=== PATIENT | male | born 1960 | race Caucasian/White ===

== ENCOUNTER 2021-08-02 18:48 | Emergency (ER) | payer SELFPAY ==
[2021-08-02] MEDS ORDERED: KETOROLAC 30 MG/1 ML INJ IV ONE (20:16)
[2021-08-02] MEDS ORDERED: diazePAM 10 MG/2 ML SYRINGE IV ONE (20:16)
[2021-08-02] MEDS ORDERED: ASPIRIN 81 MG TAB CHEW PO ONE ×2 (20:19→20:31)
--- NOTE | 2021-08-02 20:24 | Emergency Department Report ---
ED General Adult HPI - General Chief complaint: Chest Pain Stated complaint: PAIN/NECK/SHOULDER/ARM/CHEST Time Seen by Provider: 08/02/21 19:29 Source: patient Mode of arrival: Ambulatory Limitations: No Limitations - History of Present Illness Initial comments: 60-year-old male with a history of CAD s/p 7 stents who presents with left shoulder pain that started about 3 days ago radiating to his neck progressively getting worse. Patient denies any jarad chest pain. Patient reports injury to his C4 and [address] Patient reported he used to get steroid, pain medication, and gabapentin to relieve his neck radiating pain. Patient believes that this is likely an episode of this neck to shoulder discomfort as he used to have. Patient also reports some tingling and numbness in his left finger as a result of the injury to his neck in the past. Patient denies any shortness of breath or palpitation. Patient denies any fall or trauma. No fever or chills reported. No other modifying or associated factors reported. Severity scale (0 -10): 7 - Related Data Previous Rx's Medication Instructions Recorded Last Taken Type Cyclobenzaprine [Flexeril] 10 mg PO TID PRN 5 Days #30 tab 08/02/21 Unknown Rx Duloxetine HCl [Cymbalta] 60 mg PO DAILY 30 Days #30 tab 08/02/21 Unknown Rx Ketorolac [Toradol] 10 mg PO Q6H PRN 5 Days #20 tab 08/02/21 Unknown Rx Allergies Allergy/AdvReac Type Severity Reaction Status Date / Time No Known Allergies Allergy Unverified 08/02/21 18:54 ED Review of Systems ROS: Stated complaint: PAIN/NECK/SHOULDER/ARM/CHEST Other details as noted in HPI Comment: All other systems reviewed and negative Respiratory: denies: shortness of breath, SOB with exertion Cardiovascular: denies: chest pain, palpitations, dyspnea on exertion Musculoskeletal: arthralgia, myalgia ED Past Medical Hx - Past Medical History Previous Medical History?: Yes Hx Hypertension: Yes Hx Heart Attack/AMI: Yes Hx Arthritis: Yes Additional medical history: Tripple bypass, aneurysm. 7 stents. pinched nerve - Surgical History Past Surgical History?: Yes Hx Open Heart Surgery: Yes (Tripple bypass) Hx Cholecystectomy: Yes Additional Surgical History: rectal sx - Medications Home Medications: Home Medications Medication Instructions Recorded Confirmed Last Taken Type Cyclobenzaprine [Flexeril] 10 mg PO TID PRN 5 Days #30 tab 08/02/21 Unknown Rx Duloxetine HCl [Cymbalta] 60 mg PO DAILY 30 Days #30 tab 08/02/21 Unknown Rx Ketorolac [Toradol] 10 mg PO Q6H PRN 5 Days #20 tab 08/02/21 Unknown Rx ED Physical Exam - General Limitations: No Limitations General appearance: alert, in no apparent distress - Head Head exam: Present: normal inspection - Eye Eye exam: Present: normal appearance Pupils: Present: normal accommodation - ENT ENT exam: Present: normal exam, normal orophraynx, mucous membranes moist - Neck Neck exam: Present: normal inspection, tenderness (Posterior neck tenderness to palpation with reduced flexion due to previous injury) - Respiratory Respiratory exam: Present: normal lung sounds bilaterally. Absent: respiratory distress, chest wall tenderness - Cardiovascular Cardiovascular Exam: Present: regular rate, normal rhythm, normal heart sounds - GI/Abdominal GI/Abdominal exam: Present: soft, normal bowel sounds. Absent: distended, tenderness, guarding - Extremities Exam Extremities exam: Present: normal inspection, full ROM, normal capillary refill. Absent: tenderness - Expanded Upper Extremity Exam Left Shoulder Exam: Present: normal inspection, tenderness Upper Arm exam: Present: normal inspection. Absent: tenderness Elbow exam: Present: normal inspection, full ROM. Absent: tenderness Forearm Wrist exam: Present: normal inspection, full ROM. Absent: tenderness Hand Wrist exam: Present: normal inspection, full ROM. Absent: tenderness - Back Exam Back exam: Present: normal inspection - Neurological Exam Neurological exam: Present: alert, oriented X3 - Psychiatric Psychiatric exam: Present: normal affect, normal mood - Skin Skin exam: Present: warm, normal color. Absent: intact ED Course Vital Signs 08/02/21 08/02/21 08/02/21 18:57 19:20 19:32 Temperature 97.7 F Pulse Rate 95 H 84 90 Respiratory 18 15 19 Rate Blood Pressure 125/84 143/94 Blood Pressure 143/94 [Right] O2 Sat by Pulse 97 98 98 Oximetry 08/02/21 08/02/21 08/02/21 19:46 20:00 20:18 Temperature Pulse Rate 83 78 82 Respiratory 13 17 14 Rate Blood Pressure 143/94 153/89 Blood Pressure [Right] O2 Sat by Pulse 97 96 96 Oximetry 08/02/21 08/02/21 08/02/21 20:30 20:46 21:00 Temperature Pulse Rate 81 76 Respiratory 21 21 Rate Blood Pressure 121/69 Blood Pressure [Right] O2 Sat by Pulse 96 97 98 Oximetry - Reevaluation(s) Reevaluation #1: 08/02/21 20:25 here with left shoulder and neck pain and noted with posterior neck tenderness to palpation with reduced flexion due to previous injury-however considering this patient cardiac history will rule out cardiac with EKG and troponin then treat his radiating cervical radiculopathy with toradol + valium + aspirin and other routine labs-- 08/02/21 20:27 Reevaluation #2: 08/02/21 22:21 Noted with unremarkable work-up including initial EKG and troponin which supported felt that this is likely not cardiac--chest x-ray with no acute finding, left shoulder x-ray showed some arthritis without any soft tissue swelling--we will discharge this patient home on pain medication and muscle r elaxant including neuroleptic pain medication with close follow-up with his primary doctor. ED Medical Decision Making - Lab Data Result diagrams: 08/02/21 20:45 08/02/21 20:45 - EKG Data -: EKG Interpreted by Me EKG shows normal: sinus rhythm Rate: normal - EKG Data When compared to previous EKG there are: previous EKG unavailable Interpretation: no acute changes, normal EKG 08/02/21 20:30 Normal EKG - Differential Diagnosis PR, Arthritis, shoulder pain, Critical care attestation.: If time is entered above; I have spent that time in minutes in the direct care of this critically ill patient, excluding procedure time. ED Disposition Clinical Impression: Arthritis of left shoulder region, Cervical radiculopathy at C5 Chest pain Qualifiers: Chest pain type: unspecified Qualified Code(s): R07.9 - Chest pain, unspecified Disposition: 01 HOME / SELF CARE / HOMELESS Is pt being admited?: No Does the pt Need Aspirin: Yes Condition: Stable Instructions: Cervical Radiculopathy, Radicular Pain, Neuropathic Pain, Arthritis, Nonspecific Chest Pain, Adult, Nonspecific Chest Pain, Adult, [id number] Additional Instructions: Take your pain medication as prescribed to help your symptoms It is very important that you call and follow-up with your primary doctor in the next 3 to 5 days for progress It is okay to apply topical analgesic like BenGay or to apply heat to your shoulder joint and posterior neck for 15-20 minutes for the next 3 days Please do not hesitate to call or return to emergency room if your symptoms worsen Prescriptions: Duloxetine HCl [Cymbalta] 60 mg PO DAILY 30 Days #30 tab Cyclobenzaprine [Flexeril] 10 mg PO TID PRN 5 Days #30 tab PRN Reason: Muscle Spasm Ketorolac [Toradol] 10 mg PO Q6H PRN 5 Days #20 tab PRN Reason: Pain
[2021-08-02] MEDS ORDERED: DULoxetine 30 MG CAP PO ONE (20:32)
[2021-08-02 20:58] LABS: Basophils # (Auto) 0.1 K/mm3 (0.0-0.1); Basophils % (Auto) 1.4 % (0.0-1.8); Eosinophils # (Auto) 0.2 K/mm3 (0.0-0.4); Eosinophils % (Auto) 2.3 % (0.0-4.3); Hematocrit 44.6 % (35.5-45.6); Hemoglobin 14.6 gm/dl (11.8-15.2); Lymphocytes # (Auto) 2.7 K/mm3 (1.2-5.4); Lymphocytes % (Auto) 30.4 % (13.4-35.0); Mean Corpuscular HGB Conc 33 % (32-34); Mean Corpuscular Volume 89 fl (84-94); Monocytes # (Auto) 0.5 K/mm3 (0.0-0.8); Monocytes % (Auto) 5.9 % (0.0-7.3); Platelet Count 150 K/mm3 (140-440); Red Blood Count 5.02 M/mm3 (3.65-5.03); Red Cell Distribution Width 14.5 % (13.2-15.2)
--- NOTE | 2021-08-02 21:01 | XRay Report ---
XR shoulder 2+V LT INDICATION / CLINICAL INFORMATION: left shoulder pain COMPARISON: None available. FINDINGS: No acute fracture or malalignment. 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 No focal sof t tissue abnormality. IMPRESSION: 1. No acute osseous findings in the left shoulder. Signer Name: Rafa Vargas MD Signed: 08/02/2021 8:57 PM Workstation Name: [id number]
--- NOTE | 2021-08-02 21:08 | XRay Report ---
XR chest 1V ap INDICATION / CLINICAL INFORMATION: left shoulder pain radiating to neck. COMPARISON: None available. FINDINGS: SUPPORT DEVICES: None. HEART /PULMONARY VASCULATURE: Sternotomy changes. Heart size is normal. No significant pulmonary vasc ulature congestion. LUNGS / PLEURA: No significant pulmonary or pleural abnormality. No pneumothorax. IMPRESSION: 1. No acute findings. Signer Name: Rafa Vargas MD Signed: 08/02/2021 9:04 PM Workstation Name: [id number]
[2021-08-02 21:09] LABS: INR 0.87 (0.87-1.13)
[2021-08-02 21:10] LABS: Partial Thromboplastin Time 27.5 Sec. (24.2-36.6)
[2021-08-02 21:18] LABS: Alanine Aminotransferase 25 units/L (7-56); Albumin 3.7 g/dL (3.9-5); BUN/Creatinine Ratio 19; Blood Urea Nitrogen 17 mg/dL (9-20); Calcium 8.5 mg/dL (8.4-10.2); Hemolysis Index 7
[2021-08-02 22:49] LABS: Bilirubin,Urine NEG (Negative); Blood,Urine MOD (Negative); Color,Urine Yellow (Yellow); Mucus,Urine 1+ /HPF; Urobilinogen,Urine < 2.0 mg/dL (<2.0)
[2021-08-02 22:58] VITALS: BP 153/73
--- NOTE | 2021-08-06 19:40 | Electrocardiograph Report ---
[facility] Test Date: 2021-08-02 Test Time: 19:08:07 Pat Name: NIKOLE GARDNER Department: Room: Gender: M [employer]: JUD : 1960 Requested By: SUSHANT SKINNER Order Number: [id number] Reading MD: Jerod Christy Measurements Intervals [place] Rate: 82 P: 57 CA: 130 QRS: 18 QRSD: 98 T: 62 QT: 354 QTc: 415 Interpretive Statements Sinus rhythm No previous ECG available for comparison Electronically Signed On 08-06-2021 19:40:06 EDT by Jerod Christy
== END 2021-08-02 22:58 | disposition home or self-care (01) ==
LOC: ED 18:48
DX: M19.012 Primary osteoarthritis, left shoulder (principal); M54.12 Radiculopathy, cervical region; R07.9 Chest pain, unspecified
CPT/HCPCS: 36415; 71045; 73030; 80053; 81001; 83880; 84484; 85025; 85610; 85730; 93005; 96374; 96375; 99284; J1885; J3360